=== PATIENT | female | born 1995 | race Caucasian/White ===

== ENCOUNTER 2016-02-25 12:57 | Emergency (ER) | payer BC ==
[~2016-02-25] VITALS: Ht 177.8 cm; Wt 107.8 kg
[~2016-02-25 12:57] MED LIST: AMOXIL500 M1 PO; BACTRIM,SEPT1 TABLET PO; FLEXERIL10 MG PO; Levaquin PO; MOTRIN600 MG PO; PERCOCET 5/31 TABLET PO; Percocet 5/325,Endoc PO; TRAMADOL HCL50 MG PO
[2016-02-25 14:08] LABS: ADD MIUA? YES; BILIRUBIN NEGATIVE; BLOOD NEGATIVE; COLOR YELLOW ((YELLOW)); GLUCOSE (STRIP) NEGATIVE; KETONES NEGATIVE; LEUKOCYTES SMALL; NITRITE NEGATIVE; PH, URINE 6.5 (5-8); PROTEIN (STRIP) NEGATIVE; SPECIFIC GRAVITY 1.026 (1.000-1.030); UROBILINOGEN 0.2 MG/DL (0.2-1.0)
[2016-02-25 14:43] LABS: HEMATOCRIT 36.5 % (36.0-46.0); MCH 30.4 PG (29.0-34.0); MCHC 35.6 G/DL (30.0-36.0); MCV 85.5 FL (83-99); MEAN PLAT.VOLUME 9.7 uM^3 (9.5-12.4); PLATELET COUNT 218 K/uL (156-360); RBC DIS.WIDTH-CV 11.9 % (11.8-14.6); RBC DIS.WIDTH-SD 35.9 % (39-53); RED BLOOD COUNT 4.27 M/uL (3.80-5.20); WHITE BLOOD COUNT 8.8 K/uL (4.1-10.2)
[2016-02-25 14:52] LABS: CHLORIDE 106 mEq/L (99-109); POTASSIUM 3.9 mEq/L (3.7-5.4); SODIUM 138 mEq/L (136-147)
[2016-02-25 14:55] LABS: GLUCOSE 82 mg/dL (70-99)
[2016-02-25 14:56] LABS: ANION GAP 9 MEQ/L (2-14)
[2016-02-25 14:56] LABS: BACTERIA 2+; CASTS NONE SEEN /LPF; CRYSTALS NONE SEEN; EPITHELIAL CELLS 1+; MUCUS 1+; RED BLOOD CELLS 0-5 /HPF (0-5); UCUL ADDED? YES
[2016-02-25 14:57] LABS: TOTAL BILIRUBIN 0.3 mg/dL (0.0-1.0)
[2016-02-25 14:58] LABS: ALKALINE PHOSPHATASE 71 IU/L (3-129); GFR ESTIMATE (CALCULATED) > 59 mL/min/
[2016-02-25 14:59] LABS: UREA NITROGEN (BUN) 8 mg/dL (9-23)
[2016-02-25 15:26] LABS: QUANTITATIVE HCG 102974.4 MIU/ML
[2016-02-25] MEDS ORDERED: CLEOCIN300 MG PO (18:32)
[2016-02-25 19:04] VITALS: BP 106/72
[2016-02-26 13:24] LABS: CHLAMYDIA TRACHOMATIS NEGATIVE; NEISSERIA GONORRHOEAE NEGATIVE
== END 2016-02-25 19:04 | disposition home or self-care (01) ==
LOC: EME 12:57 → RME 12:57
PROVIDERS: Nurse Practitioner Family
DX: O23.591 Infection of other part of genital tract in pregnancy, first trimester (principal); N76.0 Acute vaginitis; R10.30 Lower abdominal pain, unspecified; Z3A.09 9 weeks gestation of pregnancy; Z87.440 Personal history of urinary (tract) infections; Z87.891 Personal history of nicotine dependence
CPT/HCPCS: 76801; 80053; 81003; 84702; 85027; 87086; 87210; 87480; 87491; 87510; 87591; 87660; 99281; 99284